=== PATIENT | male | born 1950 | race Caucasian/White ===

== ENCOUNTER 2019-01-30 18:07 | Inpatient (IN) | payer OTHER, MEDICARE ==
[~2019-01-30] VITALS: Ht 170.2 cm; Wt 90.8 kg
[~2019-01-30 18:07] MED LIST: ETOMIDATE 20 MG/10 ML ONE; SUCCINYLCHOLINE 20 MG/ML, 10ML ONE; VECURONIUM 10 MG ONE
[2019-01-30] MEDS ORDERED: ASPIRIN 81 MG TABLET EC ONE (18:23)
[2019-01-30] MEDS ORDERED: ASPIRIN 81 MG TABLET CHEW ONE (18:25)
[2019-01-30] MEDS ORDERED: ASPIRIN 81 MG TABLET CHEW PO ONE (18:30)
[2019-01-30] MEDS ORDERED: SODIUM CHLORIDE FLUSH 10ML SYR IVF ONE (18:30)
[2019-01-30] MEDS ORDERED: MORPHINE SULFATE 4 MG/ML, 1ML ONE (18:33)
[2019-01-30] MEDS ORDERED: METOPROLOL 1 MG/ML, 5ML ONE (18:33)
[2019-01-30 18:34] LABS: BASOPHILS # (AUTO) 0.11 x10^3/uL (0-0.1); BASOPHILS % (AUTO) 1 % (0-1); EOSINOPHILS # (AUTO) 0.33 x10^3/uL (0-0.4); EOSINOPHILS % (AUTO) 3 % (1-7); LYMPHOCYTES # (AUTO) 1.18 x10^3/uL (1-3.4); LYMPHOCYTES % (AUTO) 11 % (22-44); MD NO; MEAN CORPUSCULAR HGB CONC 34.1 g/dL (33.2-36.2); MEAN CORPUSCULAR VOLUME 93.6 fL (81-97); MEAN PLATELET VOLUME 7.2 fL (7.4-10.4); MONOCYTES # (AUTO) 0.83 x10^3/uL (0.2-0.8); MONOCYTES % (AUTO) 8 % (2-9); NEUTROPHILS % (AUTO) 77 % (42-75); PLATELET COUNT 311 x10^3/uL (130-400); RED BLOOD COUNT 4.93 x10^6/uL (4.38-5.82); RED CELL DISTRIBUTION WIDTH 14.7 % (9.4-14.8)
--- NOTE | 2019-01-30 18:40 | NUR ---
PER DR. MARIE, DR. VAN REPORTED EKG LOOKED LIKE A BUNDLE BRANCH BLOCK AND CALLING A STEMI IS NOT WARRANTED AT THIS TIME.
[2019-01-30 18:45] LABS: ALANINE AMINOTRANSFERASE 34 U/L (12-78); ALBUMIN 3.6 g/dL (3.4-5.0); ANION GAP 7 mmol/L (5-15); CALCIUM 8.3 mg/dL (8.5-10.1); CHLORIDE 99 mmol/L (98-107); CREATININE 1.12 mg/dL (0.7-1.3)
[2019-01-30 18:49] LABS: ALKALINE PHOSPHATASE 130 U/L (45-117); BILIRUBIN,TOTAL 0.3 mg/dL (0.2-1.0); TOTAL PROTEIN 7.1 g/dL (6.4-8.2); TROPONIN I 0.043 ng/mL (0.000-0.045)
--- NOTE | 2019-01-30 18:58 | NUR ---
PT BROUGHT BACK TO ROOM DUE TO EKG CONCERNS. PT APPEARS PALE AND CLAMMY. PT IS TACHYPNIC AT 30 RR. PLACED ON 15L VIA NON-REBREATHER. PTS STATS 93%. PT ALSO STATES LEFT CHEST PAIN THAT RADIATES TO THE BACK. ALSO COMPLAINS OF SOB. DENIES N/V, AND PALPITATIONS. DENIES AGGREVATING AND ALLEVIATING FACTORS. 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 DR MARIE AT BEDSIDE.
[2019-01-30] MEDS ORDERED: METOPROLOL 1 MG/ML, 5ML IVPush ONE (19:00)
[2019-01-30] MEDS ORDERED: MORPHINE SULFATE 4 MG/ML, 1ML IVPush ONE (19:00)
[2019-01-30] MEDS ORDERED: MORPHINE SULFATE 4 MG/ML, 1ML IVPush PRN (19:00)
[2019-01-30] MEDS ORDERED: FUROSEMIDE 40 MG/4 ML IVP ONE (19:00)
[2019-01-30] MEDS ORDERED: FUROSEMIDE 40 MG/4 ML ONE (19:03)
[2019-01-30] MEDS ORDERED: NITROGLYCERIN OINT 2%, 1GM TP ONE ×2 (19:11→21:00)
--- NOTE | 2019-01-30 19:14 | NUR ---
received report from BONILLA Jessica. patient moved from 26 to t3. patient states he is getting worse.
[2019-01-30] MEDS ORDERED: PROPOFOL 100 ML IV ONE ×2 (19:17→19:40)
--- NOTE | 2019-01-30 19:18 | NUR ---
THROUGHPUT RN: ECHO NOT AVAILABLE. ERP DR. MARIE NOTIFIED. PER ERP RE-PAGE CARDS.
--- NOTE | 2019-01-30 19:21 | NUR ---
INTUBATION DONE. AWAITING X RAY TO CHECK FOR PLACEMENT.
--- NOTE | 2019-01-30 19:30 | NUR ---
ADMITTING MD AT BEDSIDE TALKING TO . X RAY AT BEDSIDE FOR TUBE PLACEMENT.
--- NOTE | 2019-01-30 19:45 | NUR ---
PATIENT TO CT SCAN.
--- NOTE | 2019-01-30 19:55 | NUR ---
BACK FROM CT SCAN. HOOKED TO MONITOR. VSS
[2019-01-30] MEDS ORDERED: FUROSEMIDE 40 MG/4 ML IV ONE (20:00)
[2019-01-30] MEDS ORDERED: ENOXAPARIN 40 MG/0.4 ML SQ SCH (20:00)
[2019-01-30] MEDS ORDERED: SUCCINYLCHOLINE 20 MG/ML, 10ML IVPush ONE (20:00)
[2019-01-30] MEDS ORDERED: LABETALOL 5MG/ML, 20ML IVPush PRN (20:00)
[2019-01-30] MEDS ORDERED: ENALAPRILAT 1.25 MG/ML, 2ML IVPush PRN (20:00)
[2019-01-30] MEDS ORDERED: hydrALAzine 20 MG/ML, 1ML IVPush PRN (20:00)
[2019-01-30] MEDS ORDERED: ETOMIDATE 20 MG/10 ML IVPush ONE (20:00)
--- NOTE | 2019-01-30 20:15 | NUR ---
WILLIAMSON INSERTED WITH GOOD URINE OUTPUT ~ 200 ML. OG PLACED AND CONNECTED TO LOW SUCTION WITH MINIMAL CLEAR OUTPUT.
[2019-01-30] MEDS ORDERED: VECURONIUM 10 MG IVPush ONE (20:30)
[2019-01-30] MEDS ORDERED: DEXTROSE 50%, 50ML SYRINGE IVPush PRN (20:30)
[2019-01-30] MEDS ORDERED: DEXTROSE 4 GM TAB.CHEW PO PRN (20:30)
[2019-01-30] MEDS ORDERED: GLUCAGON 1 MG IM PRN (20:30)
[2019-01-30 20:46] LABS: HEMOGLOBIN A1C 6.8 % (4.2-6.3)
--- NOTE | 2019-01-30 20:55 | NUR ---
BED ASSIGNED. REPORT TO BONILLA ALBARRAN. PATIENT TAKEN UP TO CCU.
[2019-01-30 21:00] VITALS: BP 160/88
[2019-01-30] MEDS ORDERED: FAMOTIDINE 20 MG/2 ML IVPush SCH (21:00)
[2019-01-30] MEDS ORDERED: PHARMACY MAY ADJ FOR RENAL FX MC SCH (21:30)
[2019-01-30] MEDS ORDERED: ALBUTEROL/IPRATROPIUM 2.5MG/0.5MG, 3 ML ONE (21:54)
[2019-01-30] MEDS: INSULIN LISPRO 100 UNITS/ML, PEN SQ-INSULIN SCH (22:34)
[2019-01-30] MEDS: methylPREDNISolone SOD SUCC 125 MG/2 ML IVPush SCH (22:40)
[2019-01-30] MEDS ORDERED: PROPOFOL 100 ML IV PRN (22:42)
[2019-01-30] MEDS ORDERED: FENTANYL PF 100 MCG/2ML IVPush PRN (23:00)
[2019-01-30] MEDS ORDERED: LIDOCAINE-MPF 1%, 2ML ENDO PRN (23:00)
[2019-01-30] MEDS ORDERED: BISACODYL 10 MG SUPP PR PRN (23:00)
[2019-01-30] MEDS ORDERED: SENNOSIDES 8.8 MG/5 ML ORAL SOL NG PRN (23:00)
[2019-01-30] MEDS ORDERED: LACTULOSE 20 GM/30 ML UDC NG PRN (23:00)
[2019-01-30] MEDS ORDERED: SENNA/DOCUSATE TABLET NG PRN (23:00)
[2019-01-30] MEDS: SODIUM CHLORIDE FLUSH 10ML SYR IVF SCH ×2 (23:14→23:15)
[2019-01-30] MEDS: FAMOTIDINE 20 MG/2 ML IV SCH (23:18)
[2019-01-30] MEDS: LIDOCAINE-MPF 1%, 2ML ENDO PRN (23:19)
[2019-01-30] MEDS: ALBUTEROL/IPRATROPIUM 2.5MG/0.5MG, 3 ML INLINE SCH (23:19)
[2019-01-31] MEDS ORDERED: OMNIPAQUE 350 MG/ML, 100ML BOTTLE ONE (00:22)
[2019-01-31] MEDS: PROPOFOL 100 ML IV PRN ×2 (00:24→06:00)
[2019-01-31] MEDS: ALBUTEROL/IPRATROPIUM 2.5MG/0.5MG, 3 ML INLINE SCH ×3 (02:25→10:37)
[2019-01-31 04:00] VITALS: BP 108/57
[2019-01-31] MEDS: methylPREDNISolone SOD SUCC 125 MG/2 ML IVPush SCH ×4 (04:06→22:30)
[2019-01-31 05:57] LABS: MEAN CORPUSCULAR HEMOGLOBIN 31.2 pg (27.5-34.5); MEAN CORPUSCULAR HGB CONC 33.4 g/dL (33.2-36.2); MEAN CORPUSCULAR VOLUME 93.5 fL (81-97); PLATELET COUNT 283 x10^3/uL (130-400); RED BLOOD COUNT 4.87 x10^6/uL (4.38-5.82); RED CELL DISTRIBUTION WIDTH 14.6 % (9.4-14.8)
[2019-01-31 06:14] LABS: ALANINE AMINOTRANSFERASE 35 U/L (12-78); ALBUMIN 3.2 g/dL (3.4-5.0); ANION GAP 5 mmol/L (5-15); CALCIUM 8.1 mg/dL (8.5-10.1); CHLORIDE 103 mmol/L (98-107); CREATININE 0.91 mg/dL (0.7-1.3); TRIGLYCERIDES 73 mg/dL (50-200)
[2019-01-31 06:18] LABS: ALKALINE PHOSPHATASE 100 U/L (45-117); BILIRUBIN,TOTAL 0.5 mg/dL (0.2-1.0); TOTAL PROTEIN 6.8 g/dL (6.4-8.2)
[2019-01-31] MEDS: LIDOCAINE-MPF 1%, 2ML ENDO PRN ×2 (06:40→10:37)
[2019-01-31 06:48] LABS: BASOPHILS # (AUTO) 0.02 x10^3/uL (0-0.1); BASOPHILS % (AUTO) 0 % (0-1); EOSINOPHILS % (AUTO) 0 % (1-7); LYMPHOCYTES # (AUTO) 0.36 x10^3/uL (1-3.4); LYMPHOCYTES % (AUTO) 3 % (22-44); MD SCAN; MONOCYTES # (AUTO) 0.15 x10^3/uL (0.2-0.8); MONOCYTES % (AUTO) 1 % (2-9); NEUTROPHILS # (AUTO) 10.26 x10^3/uL (1.8-6.8); NEUTROPHILS % (AUTO) 95 % (42-75)
[2019-01-31] MEDS ORDERED: HEPARIN 5,000 UNITS/ML, 1ML IV PRN (08:00)
[2019-01-31] MEDS ORDERED: HEPARIN 5,000 UNITS/ML, 1ML IV ONE ×2 (08:00→08:30)
[2019-01-31] MEDS ORDERED: HEPARIN 25,000 UNITS/500ML PMX 500 ML IV PRN (08:00)
[2019-01-31] MEDS: FUROSEMIDE 40 MG/4 ML IV SCH ×2 (08:13→17:01)
[2019-01-31] MEDS: INSULIN LISPRO 100 UNITS/ML, PEN SQ-INSULIN SCH ×3 (08:13→20:22)
[2019-01-31] MEDS: SODIUM CHLORIDE FLUSH 10ML SYR IVF SCH ×4 (09:00→21:00)
[2019-01-31] MEDS: HEPARIN 25,000 UNITS/500ML PMX 500 ML IV PRN (09:04)
[2019-01-31 09:42] LABS: MICROSCOPIC AUTO
[2019-01-31 09:50] LABS: CULTURE INDICATED? NO
[2019-01-31] MEDS ORDERED: METF500T17 PO (09:56)
[2019-01-31] MEDS ORDERED: SIMV10TA3 PO (09:56)
[2019-01-31] MEDS ORDERED: CILO100T PO (09:56)
[2019-01-31] MEDS ORDERED: GLYB5TAB3 PO (09:56)
[2019-01-31] MEDS ORDERED: LISI40TA PO (09:56)
[2019-01-31] MEDS: FAMOTIDINE 20 MG/2 ML IV SCH ×2 (11:17→22:29)
[2019-01-31] MEDS ORDERED: INSULIN LISPRO 100 UNITS/ML, PEN SQ-INSULIN SCH (13:00)
[2019-01-31] MEDS: ASPIRIN 81 MG TABLET EC PO SCH (13:24)
[2019-01-31] MEDS: HEPARIN 5,000 UNITS/ML, 1ML IV PRN ×2 (16:16→21:41)
[2019-01-31] MEDS: METOPROLOL TARTRATE 25 MG TABLET PO SCH (17:01)
[2019-01-31] MEDS: ATORVASTATIN 40 MG TABLET PO SCH (20:19)
[2019-02-01] MEDS: methylPREDNISolone SOD SUCC 125 MG/2 ML IVPush SCH ×2 (03:07→09:31)
[2019-02-01 03:58] LABS: BASOPHILS # (AUTO) 0.01 x10^3/uL (0-0.1); BASOPHILS % (AUTO) 0 % (0-1); EOSINOPHILS % (AUTO) 0 % (1-7); LYMPHOCYTES # (AUTO) 0.67 x10^3/uL (1-3.4); LYMPHOCYTES % (AUTO) 4 % (22-44); MD NO; MEAN CORPUSCULAR HEMOGLOBIN 31.7 pg (27.5-34.5); MEAN CORPUSCULAR HGB CONC 33.7 g/dL (33.2-36.2); MEAN CORPUSCULAR VOLUME 94.2 fL (81-97); MEAN PLATELET VOLUME 7.5 fL (7.4-10.4); MONOCYTES # (AUTO) 0.53 x10^3/uL (0.2-0.8); MONOCYTES % (AUTO) 3 % (2-9); NEUTROPHILS # (AUTO) 16.38 x10^3/uL (1.8-6.8); NEUTROPHILS % (AUTO) 93 % (42-75); PLATELET COUNT 276 x10^3/uL (130-400); RED CELL DISTRIBUTION WIDTH 14.8 % (9.4-14.8)
[2019-02-01 04:00] VITALS: BP 133/70
[2019-02-01 04:06] LABS: ANION GAP 6 mmol/L (5-15); CALCIUM 8.3 mg/dL (8.5-10.1); CHLORIDE 100 mmol/L (98-107); CREATININE 1.01 mg/dL (0.7-1.3)
[2019-02-01] MEDS: HEPARIN 5,000 UNITS/ML, 1ML IV PRN (04:28)
[2019-02-01] MEDS: ASPIRIN 81 MG TABLET EC PO SCH (05:10)
[2019-02-01] MEDS: METOPROLOL TARTRATE 25 MG TABLET PO SCH ×2 (05:10→18:46)
[2019-02-01] MEDS: INSULIN LISPRO 100 UNITS/ML, PEN SQ-INSULIN SCH ×4 (08:02→19:46)
[2019-02-01] MEDS: HEPARIN 25,000 UNITS/500ML PMX 500 ML IV PRN (08:05)
[2019-02-01] MEDS: SODIUM CHLORIDE FLUSH 10ML SYR IVF SCH ×4 (09:00→19:45)
[2019-02-01] MEDS ORDERED: FUROSEMIDE 40 MG/4 ML IV SCH (09:00)
[2019-02-01] MEDS: FAMOTIDINE 20 MG/2 ML IV SCH ×2 (09:30→19:45)
[2019-02-01] MEDS: SODIUM CHLORIDE 0.9% 1,000 ML IV SCH ×2 (11:00→19:52)
[2019-02-01] MEDS ORDERED: MIDAZOLAM 1 MG/ML, 5ML ONE (14:31)
[2019-02-01] MEDS ORDERED: LIDOCAINE 2%, 20ML ONE (14:31)
[2019-02-01] MEDS ORDERED: HEPARIN 1,000 UNITS/ML, 10ML ONE (14:31)
[2019-02-01] MEDS ORDERED: VERAPAMIL 2.5 MG/ML, 2ML ONE (14:31)
[2019-02-01] MEDS ORDERED: FENTANYL PF 100 MCG/2ML ONE (14:31)
[2019-02-01] MEDS ORDERED: BIVALIRUDIN 250 MG ONE (14:31)
[2019-02-01] MEDS: ATORVASTATIN 40 MG TABLET PO SCH (19:45)
[2019-02-01] MEDS ORDERED: NICOTINE 21 MG/24 HR PATCH.TD24 TD SCH (21:00)
[2019-02-01] MEDS ORDERED: methylPREDNISolone SOD SUCC 40 MG/ML IVPush SCH (21:00)
[2019-02-02 04:56] LABS: ANION GAP 5 mmol/L (5-15); CALCIUM 8.5 mg/dL (8.5-10.1); CHLORIDE 102 mmol/L (98-107); CREATININE 0.86 mg/dL (0.7-1.3)
[2019-02-02] MEDS: ASPIRIN 81 MG TABLET EC PO SCH (05:58)
[2019-02-02] MEDS: METOPROLOL TARTRATE 25 MG TABLET PO SCH (05:58)
[2019-02-02] MEDS ORDERED: ENOXAPARIN 40 MG/0.4 ML SQ SCH (07:00)
[2019-02-02] MEDS: INSULIN LISPRO 100 UNITS/ML, PEN SQ-INSULIN SCH (07:00)
[2019-02-02] MEDS ORDERED: FURO40TA6 PO (08:40)
[2019-02-02] MEDS ORDERED: POTA10TA5 PO (08:40)
[2019-02-02] MEDS ORDERED: ASPI81TA45 PO (08:40)
[2019-02-02] MEDS ORDERED: CLOP75TA PO (08:40)
[2019-02-02] MEDS ORDERED: ATOR40TA78 PO (08:40)
[2019-02-02] MEDS ORDERED: METO-282 PO (08:42)
[2019-02-02] MEDS ORDERED: PANTOPRAZOLE 40 MG IV IVPush SCH (09:00)
[2019-02-02] MEDS: SODIUM CHLORIDE FLUSH 10ML SYR IVF SCH ×2 (09:00)
[2019-02-02] MEDS ORDERED: FUROSEMIDE 40 MG TABLET PO SCH (09:00)
[2019-02-02] MEDS ORDERED: CLOPIDOGREL 75 MG TABLET PO SCH (09:00)
[2019-02-03] MEDS ORDERED: POTASSIUM CHLORIDE 10 MEQ TABLET.ER PO SCH (09:00)
== END 2019-02-02 10:47 | disposition home or self-care (01) | DRG 208 ==
LOC: ED 20:25 → EDIP 21:04 → CCU 21:11 → DCLOUNGE 02-02 10:25
PROVIDERS: ADMIT Internal Medicine Critical Care Medicine; ATTEND Internal Medicine Critical Care Medicine
PROC: 5A1935Z Respiratory Ventilation, Less than 24 Consecutive Hours (ICD-10-PCS; principal; 2019-01-30)
PROC: 0BH17EZ Insertion of Endotracheal Airway into Trachea, Via Natural or Artificial Opening (ICD-10-PCS; 2019-01-30)
PROC: 4A023N7 Measurement of Cardiac Sampling and Pressure, Left Heart, Percutaneous Approach (ICD-10-PCS; 2019-02-01)
PROC: B2111ZZ Fluoroscopy of Multiple Coronary Arteries using Low Osmolar Contrast (ICD-10-PCS; 2019-02-01)
PROC: B2151ZZ Fluoroscopy of Left Heart using Low Osmolar Contrast (ICD-10-PCS; 2019-02-01)
DX: J96.01 Acute respiratory failure with hypoxia (principal); I21.4 Non-ST elevation (NSTEMI) myocardial infarction; I50.33 Acute on chronic diastolic (congestive) heart failure; J18.9 Pneumonia, unspecified organism; E87.1 Hypo-osmolality and hyponatremia; I42.9 Cardiomyopathy, unspecified; J44.0 Chronic obstructive pulmonary disease with (acute) lower respiratory infection; E11.65 Type 2 diabetes mellitus with hyperglycemia; E11.51 Type 2 diabetes mellitus with diabetic peripheral angiopathy without gangrene; I11.0 Hypertensive heart disease with heart failure; F17.200 Nicotine dependence, unspecified, uncomplicated; E78.5 Hyperlipidemia, unspecified; G89.29 Other chronic pain; I25.10 Atherosclerotic heart disease of native coronary artery without angina pectoris; I25.82 Chronic total occlusion of coronary artery; I35.0 Nonrheumatic aortic (valve) stenosis; I45.10 Unspecified right bundle-branch block; Z79.02 Long term (current) use of antithrombotics/antiplatelets
CPT/HCPCS: 36415; 36600; 84145; 99291; J3490; J7620; 71045; 71275; 80048; 80053; 81001; 82803; 82962; 83036; 83735; 83880; 84100; 84443; 84478; 84484; 85025; 85520; 87040; 87070; 87081; 87205; 93005; 93306; 93458; 94002; 94003; 94150; 94640; 99156; 99157; C1769; C1894; G0378; J0583; J1644; J1650; J1940; J2250; J2704; J3010; Q9967; J0330; J1815; J2920; J2930; J7030

== ENCOUNTER 2019-08-31 10:47 | Outpatient (CLI) | payer MEDICARE, OTHER ==
[~2019-08-31 10:47] MED LIST changes: +ASPI81TA45 PO; +ATOR40TA78 PO; +CILO100T PO; +CLOP75TA PO; -ETOMIDATE 20 MG/10 ML ONE; +FURO40TA6 PO; +GLYB5TAB3 PO; +LISI40TA PO; +METF500T17 PO; +METO-282 PO; +POTA10TA5 PO; +SIMV10TA3 PO; -SUCCINYLCHOLINE 20 MG/ML, 10ML ONE; -VECURONIUM 10 MG ONE
== END 2019-08-31 23:59 | disposition home or self-care (01) ==
LOC: CVU 10:47
PROVIDERS: ATTEND Internal Medicine Cardiovascular Disease
DX: I65.23 Occlusion and stenosis of bilateral carotid arteries (principal); I10 Essential (primary) hypertension; I25.2 Old myocardial infarction; E78.5 Hyperlipidemia, unspecified; E11.9 Type 2 diabetes mellitus without complications; Z87.891 Personal history of nicotine dependence
CPT/HCPCS: 93880